=== PATIENT | male | born 2005 | race Hispanic/Latino ===

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

== ENCOUNTER 2024-02-13 14:30 | Outpatient (RCR) | payer OTHER, MEDICAID, SELFPAY ==
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
--- NOTE | 2023-11-03 14:47 | PT-OP ANOTE ---
PT called at left a VM at 14:45 with pt as pt confirmed today's appt but did not show up. PT reminded pt of next appt on 11/05 and reminded pt of attendance/cancellation policy at least 24 hrs in advance.
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
--- NOTE | 2023-12-04 15:50 | PT-OP ANOTE ---
PT called surgeon's office at 1525 follow up to request on Friday regarding clinic notes and precautions: when pt able to load bicep per protocol, 90 deg abd/90 deg ER position. Surgeon's office planning to fax information prior to pt appt on Saturday 12/09.
--- NOTE | 2023-12-19 16:33 | PT-OP ANOTE ---
Left voicemail for patient re: missed appointment today and advised next appointment Friday 12/22 at 2:30pm. Advised per evaluating PT pt must attend next appointment to avoid discharge from PT due to four consecutive missed cancellations/no shows and would need to seek new referral to PT. Request pt to call/text at least 24 hours in advance if needing to cancel appointment.
--- NOTE | 2023-12-22 14:32 | PT-OP ANOTE ---
Per note from surgeon's office sent 12/05/23, pt may progress with strengthening as tolerated. No restrictions at this time.
--- NOTE | 2023-12-22 14:46 | PT-OP ANOTE ---
PT called and spoke to pt's mom. He has been sick with covid for last several weeks, and she has forgotten to call and cancel. Pt's mom reported that pt does have insurance and it will not be expiring on . She is planning to call to update about insurance. PT reminded about attendance policy. Informed pt's mom and pt that pt must be seen by PT at 3/6 appt when POC expires otherwise will be discharged due to POC and non-compliance with attendance policy (pt has canceled over 50% of November visits). Mom verbalizes understanding
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
--- NOTE | 2024-01-30 16:33 | PT-OP ANOTE ---
Left voicemail for pt re: missed PT appt and next appt is Friday 02/02 at 2:30pm. Advised to contact [phone] preferably with more than 24 hrs notice to cancel or can also respond to text reminder.
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
--- NOTE | 2024-02-13 15:59 | PT.OPPOC ---
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, subsequent encounter (02/13/24) Visit Care Team Role Provider Type Abdulkadir Garcia MD Family Provider Physician Primary Care Provider Referring Provider Specialty: Family Practice Address: [address] [place] [address], [facility] [place], [address] Email: [email or web address] Andrew Lloyd PA-C Attending Provider Non-Staff Specialty: Medical Address: [address] [place] [address], [address] Phone: Email: Plan Of Care PT-OP-T Assessment and Plan Start: 10/15/23 13:49 Freq: Status: Active Protocol: Document 02/13/24 14:31 NM (Rec: 02/13/24 15:58 NM [id number]) Physical Therapy Assessment Goals Seven Impairment function, activity Impairment pt reports at 50% PLOF regarding lifting and recreational activities Short Term Goal (STG) Pt will report return to at least 75% prior level of activity regarding return to lifting/gym and recreational activities in order to demonstrate improved R shoulder strength, activity level, and QOL STG Duration 4 weeks Residential Goal (LTG) Pt will report return to 100% prior level of activity regarding return to lifting/ gym and recreational activities in order to demonstrate improved R shoulder strength, activity level, and QOL LTG Duration 8 weeks Six Impairment function Impairment 11/05/23: 19 or 18.18% ( original score) Short Term Goal (STG) Pt will decrease quickdash score by at least 5% (1 MCID) in order to demonstrate improved ADL tolerance and QOL . 11/05/23: 19, 18.18% 12/31/23: 15 or 18% STG Duration 6 weeks MET Direct Marketing Manager Goal (LTG) Pt will decrease quickdash score by at least 11% (1 MCID) in order to demonstrate improved ADL tolerance and QOL . 12/31/23: 15 or 9% (9% decrease) 02/13/24: 12, 2.7% LTG Duration 12 weeks MET Five Impairment HEP Impairment Pt non-compliant with post-op exercises Short Term Goal (STG) Pt will report compliance with HEP at least 2-3 days/wk in order to maximize progress made during PT sessions and to promote independence with safe exercise after discharge. 11/26/23: Pt reports compliance with HEP every other day at least 12/26/23: Pt reports doing ex' s at least 2-3x/week - suggested to put reminder in phone for at least three times weekly. STG Duration 6 weeks PROGRESSING, GOAL UPDATED Residential Goal (LTG) Pt will report compliance with HEP at least 3 days/wk in order to maximize progress made during PT sessions and to promote independence with safe exercise after discharge. 02/13/24: LTG Duration 12 weeks GOAL UPDATED Four Impairment strength Impairment Unable to test due to surgical precautions Short Term Goal (STG) Pt will improve his global L shoulder strength (flex, abd, ER, IR) to at least 4-/5 in order to demonstrate increased L shoulder strength required for lifting weights, lifting objects overhead, and to be able to participate in recreational sporting activities. 11/26/23: 3+ flex (min resistance due to surgical precautions), 4-/5 all other motions STG Duration 6 weeks PROGRESSING Direct Marketing Manager Goal (LTG) Pt will improve his global L shoulder strength (flex, abd, ER, IR) to at least 4+/5 in order to demonstrate increased L shoulder strength required for lifting weights, lifting objects overhead, and to be able to participate in recreational sporting activities. 12/31/23: 4/5 for all except ER 4-/5 02/13/24: 4+/5 for all except flexion 4/5 MMT LTG Duration 12 weeks PARTIALLY MET, PROGRESSING Three Impairment ROM Impairment L shldr ER AROM 50 deg Short Term Goal (STG) Pt will improve L shoulder ER AROM to at least 60 deg without compensation and with <3/10 pain for improved ROM required for lifting weights and for full participation in ADLs without limations. 11/26/23: 70 deg ER at 0 deg abd, no pain STG Duration 6 weeks MET Direct Marketing Manager Goal (LTG) Pt will improve L shoulder ER AROM to at least 70 deg without compensation and with <3/10 pain for improved ROM required for lifting weights and for full participation in ADLs without limations. 11/26/23: 70 deg ER at 0 deg abd, no pain 12/31/23: 90 deg at 0 deg abd, 85 deg at 90 deg abd LTG Duration 12 weeks MET Two Impairment ROM Impairment L HABD AROM 87 deg Short Term Goal (STG) Pt will improve L H ABD AROM to at least 130 deg without compensations and with <3/10 pain for improved ROM required for dressing, lifting objects overhead, and for participating in throwing sports. 11/26/23: 175 deg abd, no compensation observed or pain reported 11/05/23: 155 deg, no compensation and no pain reported STG Duration 6 weeks MET Direct Marketing Manager Goal (LTG) Pt will improve L H ABD AROM to at least 165 deg without compensations and with <3/10 pain for improved ROM required for dressing, lifting objects overhead, and for participating in throwing sports. 11/26/23: 175 deg abd, no compensation observed or pain reported 12/31/23: 175 deg abd without compensation, no pain LTG Duration 12 weeks MET One Impairment ROM Impairment L Flex AROM 110 deg Short Term Goal (STG) Pt will improve L flex AROM to at least 140 deg without compensations and <3/10 pain for improved ROM required for lifting weights and performing ADLs. 11/26/23: 165 deg without observed compensation, no pain reported 11/05/23: 160 deg without upper trap compensation when cued, no pain reported STG Duration 6 weeks MET Residential Goal (LTG) Pt will improve L flex AROM to at least 165 deg without compensations and < 3/10 pain for improved ROM required for lifting weights and performing ADLs. 11/26/23: 165 deg without observed compensation, no pain reported 12/31/23: 165 deg flexion without compensation, no pain 02/13/24: 155 deg flexion with trunk extension compensation d /t latissimus tightness LTG Duration 12 weeks MET, PROGRESSING Progress Towards Goals Progress Towards Goals Progressing Toward Goals,Slow Progress - Other,Goals Met Progress Comments Met Quickdash, ROM goals. Partially met strength goals, continues to lack shoulder flexion strength (non-painful) and full shoulder flexion ROM due to lat length (non- painful). Added goal related to return to lifting in order for pt to return to PLOF Assessment Summary Assessment Pt has been seen x16 times since evaluation in September 2023 s/p L SLAP lesion repair in July 2023. Pt is progressing well toward goals, but slowly. He has full L shoulder AROM, but recently has had decreased latissimus length, which is currently limited L shoulder flexion to 155 deg (previously 165 deg). Pt currently has 4/5 L shoulder flexion strength, all other L shoulder MMT 4+/5; pain free for all resisted motions. He does not have any popping, discomfort, or instability of L shoulder at rest or with activity. Pt is slowly transitioning into return to lifting at the gym, which is his primary recreational activity to return to. He reports no difficulty with ADLs/IADLs due to L shoulder. Per, pt not planning to return to surgeon at this time. Pt partially compliant with HEP but planning to return to gym more frequently in upcoming weeks as part of routine which will help compliance. Goals updated to add return to lifting goal , as pt currently at 50% of PLOF. PT educated pt on improved compliance with HEP as will be moving down to 1x/ wk. Pt would benefit from skilled PT to improve L shoulder strength, body mechanics for safe return to lifting and recreational activities. Physical Therapy Plan Frequency and Duration Frequency of Treatment 1x/Week Duration of treatment (weeks) 8 Plan of Care Start Date 02/13/24 Plan of Care End Date 04/09/24 Therapeutic Interventions Therapeutic Interventions Aquatic Therapy,Balance Training,Coordination Training ,Home Exercise Program,Joint Mobilizations,Manual Therapy, Neuromuscular Re-education, Orthotic/Prosthetic Management ,Patient/Caregiver Education, Self-Care/Home Management, Sensory Integration,Soft Tissue Mobilization,Taping, Therapeutic Activities, Therapeutic Exercises Modalities Biofeedback,Cold Pack/Ice Massage,Electric Stimulation, Hot Packs,Infrared Therapy, Iontophoresis,Paraffin Bath, Ultrasound,Vasopneumatic Devices Next Visit Focus/Plan Next Note Type Treatment Note Next Visit Plan Each week trial new lifts 02/12: bench press, assisted pull ups (ok to progress to real if pain free) Next weeks: dips, squat with bar, chest press, ab roller Continue all with cable: lat pull down, upright rows, clean with dowel or db, dips, fly and reverse fly (trial on foam roller with db before single arm cables), triceps, front raise (low resistance>5#), lateral raise (low resistance> 5#), ER press with band pulling outward on arm, banded plank walk, bosu plank (add ball toss), cont body blades, throwing Plan of Care Dates Plan of Care Start Date 02/13/24 Plan of Care End Date 04/09/24 Electronically Signed by: Aby Albrecht, PT 02/13/24 8933 If you are in agreement with this Plan of Care, please return a signed and dated copy. I have reviewed this Plan of Care and certify that the skilled therapy services above are required to meet the patient?s needs. Physician Signature Date Printed Name and Credentials Clinical Instructor Signature Printed Name and Credentials
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
== END 2024-05-21 09:14 | disposition home or self-care (01) ==
LOC: PHYS 14:30
PROVIDERS: Family Provider Family Medicine; PCP Family Medicine; Referring Provider Family Medicine; Visit Provider Physician Assistant
DX: S43.432D Superior glenoid labrum lesion of left shoulder, subsequent encounter (principal)
CPT/HCPCS: 97110; 97112; 97140; 97161

== ENCOUNTER 2024-04-30 02:23 | Emergency (ER) | payer OTHER, MEDICAID, SELFPAY ==
[2024-04-30 02:31] VITALS: BP 140/78; PULSE 126; RESP 16; TEMP 37.2; O2SAT 94; BMI 20.9
--- NOTE | 2024-04-30 02:52 | ED.SKABFB ---
HPI - Skin/Abscess/Foreign Bdy General Chief complaint: Eye Problems Stated complaint: hit his eye playing football rt side Time Seen by Provider: 04/30/24 02:36 Source: patient Mode of arrival: Ambulatory Limitations: no limitations History of Present Illness HPI narrative: Patient is a 18-year-old male without significant past medical history presenting today with right eye laceration. He reports that he was drinking and playing football when he got tackled. Did not lose consciousness no nausea or vomiting no numbness tingling or weakness. Does have a laceration above his right eye no visual changes double vision or loss of vision. Related Data Previous Rx's Medication Instructions Recorded amoxicillin 875 mg-potassium 875 mg PO BID #14 tabs 04/06/17 clavulanate 125 mg tablet (Augmentin) erythromycin 5 mg/gram (0.5 %) eye 1 applic EYE-BOTH BEDTIME #3.5 12/02/21 ointment grams prednisone 20 mg tablet 60 mg (3 x 20 mg) PO DAILY #15 tabs 12/02/21 valacyclovir 1 gram tablet 1,000 mg PO TID #21 tabs 12/02/21 Allergies Allergy/AdvReac Type Severity Reaction Status Date / Time No Known Allergies Allergy Uncoded 02/04/18 12:01 Patient History tobacco type: vaping Substance Use Type: does not use Exam Initial Vital Signs Initial Vital Signs: Vital Signs Temperature 99.0 F 04/30/24 02:31 Pulse Rate 126 H 04/30/24 02:31 Respiratory Rate 16 04/30/24 02:31 Blood Pressure 140/78 04/30/24 02:31 Pulse Oximetry 94 04/30/24 02:31 Oxygen Delivery Method Room Air 04/30/24 02:31 GENERAL: Alert intoxicated 18-year-old male HEENT: Head atraumatic,EOMI, pupils reactive, face symmetric, moist mucous membranes Right eye 2 cm laceration in right eyebrow some contusion around eye but no step-offs extraocular movements intact NECK: Supple no vertebral tenderness no step-off full range of motion CARDIOVASCULAR: tachycardic regular RESPIRATORY: Breath sounds equal bilaterally, no wheezes rales or rhonchi. EXTREMITIES: Normal range of motion, no clubbing or edema. Neurovascularly intact NEUROLOGICAL: Alert and oriented x4.Normal gait and speech. Cranial nerves II through XII grossly intact. SKIN: Warm, dry, no laceration, no petechiae, no rashes or lesions. Procedures Laceration Repair Laceration 1: Site: face Side (If applicable): right Size (cm): 2 Description: linear Depth: simple, single layer Local Anesthetic: lidocaine 1% Amount of anesthesia used (mL): 3 Pre-repair: wound explored, irrigated extensively and deep structures intact Skin layer closed with: nylon Skin layer suture size: 4-0 Number of sutures: 2 Technique: simple, interrupted Course Orders Ordered: ED Orders 04/30/24 03:01 EKG-12 Lead Stat Discontinued Medications Lidocaine HCl (Lidocaine 1% 20 Ml) 20 ml INJ INTRA-OP ONE Stop: 04/30/24 02:56 Last Admin: 04/30/24 03:01 Dose: 20 ml Documented By: JOVITA Vital Signs Vital signs: Vital Signs - 8 hr 04/30/24 02:31 04/30/24 03:20 Temperature 99.0 F Pulse Rate 126 H 115 H Respiratory Rate 16 16 Blood Pressure 140/78 140/78 Pulse Oximetry 94 97 Oxygen Delivery Method Room Air Room Air MDM - Skin/Abscess/Foreign Bdy ECG Data Attestation: I personally reviewed and interpreted this ECG as follows: Interpretation: Sinus tachycardia rate 123 UT interval 142 QRS [address] changes MDM Narrative Medical decision making narrative: Patient 18-year-old male presents today with right eyebrow laceration. Playing football got knocked down. No loss of consciousness he was drinking no nausea or vomiting. He has been acting normal. He is noted to be tachycardic. He is in sinus rhythm. He has no focal deficits. Discharge Plan Departure Patient Disposition: Home Clinical Impression: Laceration of eyebrow, right Instructions: DI for Laceration Repair Activity Restrictions/Additional Instructions: *You have been diagnosed with right eyebrow laceration *What to do: Keep clean and dry with soap and water. Apply antibiotic ointment 1 to 2 times a day. No swimming but breathing is okay. Call PCP to have sutures removed in about 7-10 days Expect to have worsening eye contusion *Continue to take medications as directed *Follow up with your primary care provider in 2-3 days or call [phone] *Return to ER if you should have increasing redness pain swelling or any new, worsening or concerning symptoms Prescriptions: No Action amoxicillin-pot clavulanate [Augmentin] 875 MG/125 MG tablet 875 mg PO BID Qty: 14 0RF valacyclovir 1 gram tablet 1,000 mg PO TID Qty: 21 0RF prednisone 20 mg tablet 60 mg PO DAILY Qty: 15 0RF erythromycin 5 mg/gram (0.5 %) ointment 1 applic EYE-BOTH BEDTIME Qty: 3.5 0RF Referrals: Abdlukadir Garcia MD [Primary Care Provider] - Stand Alone Forms: Patient Portal/API
[2024-04-30] MEDS: LIDOCAINE 1% 20 ML INJ (03:01)
--- NOTE | 2024-04-30 03:04 | EKG_ITS ---
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
[2024-04-30 03:20] VITALS: BP 140/78; PULSE 115; RESP 16; O2SAT 97
== END 2024-04-30 03:29 | disposition home or self-care (01) ==
PROVIDERS: Emergency Provider Emergency Medicine; Family Provider Family Medicine; PCP Family Medicine
DX: S01.111A Laceration without foreign body of right eyelid and periocular area, initial encounter (principal); W03.XXXA Other fall on same level due to collision with another person, initial encounter; Y93.61 Activity, american tackle football
CPT/HCPCS: 12011; 93005; 99283